=== PATIENT | male | born 1970 | race Caucasian/White ===

== ENCOUNTER 2017-02-10 11:22 | Emergency (ER) | payer OTHER ==
[2017-02-10 11:35] VITALS: BP 155/95; PULSE 85; TEMP 98.2; BMI 26.6
[2017-02-10] MEDS ORDERED: DIPHTH,PERTUSS(ACELL),TET 0.5 ML DISP.SYRIN IM ONE (12:11)
[2017-02-10] MEDS ORDERED: IBUPROFEN 600 MG TABLET (FP) PO ONE ×2 (12:11→13:15)
[2017-02-10 13:02] LABS: PH,URINE 6.5 (4.5-8); URINE APPEARANCE Slightly; URINE BILIRUBIN 1+ (NEGATIVE); URINE GLUCOSE (UA) Negative (NEGATIVE); URINE KETONE Trace (NEGATIVE); URINE LEUK ESTERASE Negative (NEGATIVE); URINE NITRITE Negative (NEGATIVE)
[2017-02-10 13:03] LABS: URINE BLOOD 2+ (NEGATIVE); URINE COLOR DK YELLOW; URINE PROTEIN 1+ (NEGATIVE)
[2017-02-10 13:20] LABS: URINE BACTERIA MODERATE /hpf (NEGATIVE); URINE WBC 0-3 (3-5)
--- NOTE | 2017-02-10 15:16 | PDOC ---
History of Present Illness - General Chief Complaint: Injury Stated Complaint: FELL OFF LADDER Exam Limitations: No Limitations - History of Present Illness Initial Comments: 02/10/17 15:10 46 yo male with no pmhx here s/p fall from a ladder. states he fell 4 ft. landed on his back and side. no loc did not hit head. c/o right elbow pain and hip pain, also c/o dysuria . no hematuria. no flank pain .no abd pain. happened few hours prior to arrival. last tetanus unknown. no other complaints. ambulatory after fall. Past History - Past Medical History Allergies/Adverse Reactions: Allergies Allergy/AdvReac Type Severity Reaction Status Date / Time No Known Allergies Allergy Verified 02/10/17 11:23 Home Medications: Ambulatory Orders Cephalexin [Keflex] 500 mg PO TID #21 capsule 02/10/17 HTN: Yes - Psycho/Social/Smoking Cessation Hx Anxiety: No Suicidal Ideation: No Smoking Status: No Smoking History: Never smoked Have you smoked in the past 12 months: No Number of Cigarettes Smoked Daily: 0 Information on smoking cessation initiated: No Hx Alcohol Use: No Drug/Substance Use Hx: No Substance Use Type: None Review of Systems - Review of Systems Constitutional: No: Chills, Diaphoresis, Fever Respiratory: No: Orthopnea Cardiac (ROS): No: Chest Pain, Chest Tightness : Yes: Burning, Dysuria Musculoskeletal: Yes: Joint Pain, Joint Swelling. No: Back Pain Integumentary: Yes: Other (eccmosius right forearm). No: Bruising, Change in Color All Other Systems: Reviewed and Negative *Physical Exam - Vital Signs Last Vital Signs Temp Pulse Resp BP Pulse Ox 98.2 F 85 20 155/95 94 L 02/10/17 11:22 02/10/17 11:22 02/10/17 11:22 02/10/17 11:22 02/10/17 11:22 - Physical Exam General Appearance: Yes: Appropriately Dressed Neck: positive: Trachea midline. negative: Normal Thyroid Respiratory/Chest: positive: Lungs Clear, Normal Breath Sounds. negative: Chest Tender Cardiovascular: positive: Regular Rhythm, Regular Rate, S1, S2. negative: Edema , JVD Gastrointestinal/Abdominal: positive: Normal Bowel Sounds, Flat, Soft. negative : Tender Male Genitalia: positive: normal genitalia. negative: testicular tenderness, testicular mass Musculoskeletal: positive: Normal Inspection. negative: CVA Tenderness Integumentary: positive: Normal Color, Dry, Warm, Bruising, Other (eccymosis and swelling right forearm.) Neurologic: positive: Fully Oriented, Alert, Normal Mood/Affect, Other (GCS 15) ED Treatment Course - ADDITIONAL ORDERS Additional order review: Laboratory Results 02/10/17 12:33 Urine Color Dk yellow Urine Appearance Slightly Urine pH 6.5 Ur Specific [place] 1.020 Urine Protein 1+ H Urine Glucose (UA) Negative Urine Ketones Trace Urine Blood 2+ H Urine Nitrite Negative Urine Bilirubin 1+ H Urine Urobilinogen 1.0 Ur Leukocyte Esterase Negative Urine RBC 5-10 Urine WBC 0-3 Ur Epithelial Cells Moderate Urine Bacteria Moderate - RADIOLOGY Radiology Studies Ordered: Category Date Time Status ELBOW-RIGHT [RAD] Stat Radiology 02/10/17 12:09 Completed FOREARM- RIGHT [RAD] Stat Radiology 02/10/17 12:10 Completed PELVIS [RAD] Stat Radiology 02/10/17 12:10 Completed SCROTUM AND CONTENTS US [US] Stat Ultrasound 02/10/17 12:08 Completed - Medications Given in the ED: ED Medications Discontinued Medications Generic Name Dose Route Start Last Admin Trade Name Freq PRN Reason Stop Dose Admin Ibuprofen 600 mg 02/10/17 12:11 02/10/17 13:16 Motrin - PO 02/10/17 12:12 600 mg ONCE ONE Administration *DC/Admit/Observation/Transfer Diagnosis at time of Disposition: Contusion, Urethritis - Discharge Dispostion Disposition: HOME Condition at time of disposition: Improved Admit: No - Prescriptions Prescriptions: Cephalexin [Keflex] 500 mg PO TID #21 capsule - Referrals Referrals: Sacha Regalado MD [Staff Physician] - - Patient Instructions Printed Discharge Instructions: Contusion Additional Instructions: you should take keflex 500 mg three times daily x 7 days. follow up with a urologist. see referral information for Dr. regalado return for any worsening pain or any concerns. your urine was mildly positive for infection .
== END 2017-02-10 15:57 | disposition home or self-care (01) ==
LOC: FER 11:22
PROC: 3E0234Z Introduction of Serum, Toxoid and Vaccine into Muscle, Percutaneous Approach (ICD-10-PCS; principal; 2017-02-10)
DX: T14.8 Other injury of unspecified body region (principal); N34.2 Other urethritis; I10 Essential (primary) hypertension; W11.XXXA Fall on and from ladder, initial encounter; Y93.89 Activity, other specified; Y92.9 Unspecified place or not applicable
CPT/HCPCS: 72170-TC; 73070-TC-RT; 73090-TC-RT; 76870-TC; 81003; 81015; 90715; 99282-25

== ENCOUNTER 2020-12-15 21:56 | Emergency (ER) | payer OTHER ==
[2020-12-15 22:03] VITALS: BP 140/91; PULSE 80; TEMP 99.1; BMI 26.6
[2020-12-15 22:45] LABS: ALBUMIN 4.1 g/dl (3.4-5.0); BILIRUBIN,TOTAL 1.3 mg/dl (0.2-1); CALCIUM 8.2 mg/dl (8.5-10); TOT PROT 6.6 g/dl (6.4-8.2)
[2020-12-15] MEDS ORDERED: POTASSIUM CHLORIDE TABS 20 MEQ TABLET.ER (FP) PO ONE ×2 (23:00→23:04)
== END 2020-12-15 23:10 | disposition home or self-care (01) ==
LOC: FER 21:56
DX: E87.6 Hypokalemia (principal)
CPT/HCPCS: 36415; 80053; 99283-25

== ENCOUNTER 2021-04-10 01:14 | Emergency (ER) | payer OTHER ==
[2021-04-10 01:38] VITALS: PULSE 69; TEMP 97.8; BMI 26.6
[2021-04-10] MEDS ORDERED: ACETAMINOPHEN INJECTION 100 ML IVPB ONE (02:22)
[2021-04-10] MEDS ORDERED: ACETAMINOPHEN 1000 MG/100 ML VIAL IVPB ONE (02:22)
[2021-04-10 02:54] LABS: BASO % 0.3 % (0-2.0); HEMOGLOBIN 15.1 GM/dL (11.7-16.9); LYMPH % 42.2 % (8-40); MCH 26.5 pg (25.7-33.7); MCHC 32.7 g/dl (32.0-35.9); MEAN PLT VOLUME 10.6 fl (7.5-11.1); NEUT % 44.5 % (42.8-82.8); PLATELET COUNT 131 10^3/uL (134-434); RBC 5.68 M/mm3 (4.00-5.60); RDW 13.1 % (11.9-15.9); WHITE BLOOD COUNT 9.6 K/mm3 (4.0-10.0)
[2021-04-10 02:55] LABS: CHLORIDE 96 mmol/L (98-107); SODIUM 136 mmol/L (136-145)
[2021-04-10 02:57] LABS: ALBUMIN 3.8 g/dl (3.4-5.0); CALCIUM 8.8 mg/dL (8.5-10.1); LIPASE 160 U/L (73-393)
[2021-04-10 02:58] LABS: BLOOD UREA NITROGEN 11.1 mg/dL (7-18); CO2 32 mmol/L (21-32); GLUCOSE,RANDOM 101 mg/dL (74-106)
[2021-04-10 02:59] VITALS: BP 140/88
[2021-04-10 03:00] LABS: SGOT/AST 20 U/L (15-37); SGPT/ALT 29 U/L (13-61)
[2021-04-10 03:01] LABS: CREATININE 0.8 mg/dL (0.55-1.3)
[2021-04-10 03:02] LABS: BILIRUBIN,TOTAL 1.2 mg/dL (0.2-1); TOT PROT 7.7 g/dl (6.4-8.2)
[2021-04-10 03:03] LABS: ALK PHOS 93 U/L (45-117)
[2021-04-10 03:07] LABS: ANION GAP 8 MMOL/L (8-16)
[2021-04-10] MEDS ORDERED: POTASSIUM CHLORIDE TABS 20 MEQ TABLET.ER (FP) PO ONE ×2 (03:16→03:17)
== END 2021-04-10 03:38 | disposition home or self-care (01) ==
LOC: FER 01:14
PROC: 3E033NZ Introduction of Analgesics, Hypnotics, Sedatives into Peripheral Vein, Percutaneous Approach (ICD-10-PCS; principal; 2021-04-10)
DX: E87.6 Hypokalemia (principal); K29.70 Gastritis, unspecified, without bleeding
CPT/HCPCS: 36415; 74019-TC-FY; 80053; 82550; 83690; 84484; 85025; 93005; 96374; 99284-25; C9803; J0131; U0003; U0005

== ENCOUNTER 2022-01-14 00:12 | Emergency (ER) | payer OTHER ==
[2022-01-14 00:31] VITALS: BP 170/98; PULSE 66; RESP 17; TEMP 98.3; BMI 24.4
[2022-01-14 00:57] LABS: BASO % 0.4 % (0-2.0); HEMOGLOBIN 14.1 GM/dL (11.7-16.9); MCH 26.4 pg (25.7-33.7); MCHC 32.7 g/dl (32.0-35.9); MEAN CELL VOLUME 80.6 fl (80-96); MEAN PLT VOLUME 10.5 fl (7.5-11.1); MONO % 8.9 % (3.8-10.2); NEUT % 51.7 % (42.8-82.8); PLATELET COUNT 110 10^3/uL (134-434); RBC 5.33 M/mm3 (4.00-5.60); RDW 12.8 % (11.9-15.9); WHITE BLOOD COUNT 7.8 K/mm3 (4.0-10.0)
[2022-01-14 01:19] LABS: ALBUMIN 3.8 g/dl (3.4-5.0); CALCIUM 8.5 mg/dL (8.5-10.1)
[2022-01-14 01:20] LABS: BLOOD UREA NITROGEN 9.6 mg/dL (7-18)
[2022-01-14 01:22] LABS: CREATININE 0.8 mg/dL (0.55-1.3)
[2022-01-14 01:24] LABS: BILIRUBIN,TOTAL 1.1 mg/dL (0.2-1); TOT PROT 6.8 g/dl (6.4-8.2)
[2022-01-14] MEDS ORDERED: POTASSIUM CHLORIDE TABS 20 MEQ TABLET.ER (FP) PO ONE ×2 (01:38→01:39)
== END 2022-01-14 01:54 | disposition home or self-care (01) ==
LOC: FER 00:12
DX: R07.89 Other chest pain (principal); I10 Essential (primary) hypertension
CPT/HCPCS: 36415; 80053; 84484; 85025; 93005; 99284-25